=== PATIENT | female | born 1990 | race African-American/Black ===

== ENCOUNTER 2016-11-23 11:07 | Emergency (ER) | payer MEDICAID, OTHER ==
--- NOTE | 2016-11-23 11:19 | ER Document Report ---
ED Medical Screen (RME) - General Chief Complaint: Abdominal Pain Stated Complaint: ABDOMINAL PAIN Mode of Arrival: Ambulatory Information source: Patient Notes: pt presents to the ED with c/o abdominal abscess since wednesday, no fever/v/d, no hx mrsa. I have greeted and performed a rapid initial assessment of this patient. A comprehensive ED assessment and evaluation of the patient, analysis of test results and completion of the medical decision making process will be conducted by additional ED providers. TRAVEL OUTSIDE OF THE [place] IN LAST 30 DAYS: No - Related Data Allergies/Adverse Reactions: miconazole nitrate [From Monistat 3] Allergy (Verified 11/23/16 11:15) Past Medical History - Social History Chew tobacco use (# tins/day): No Frequency of alcohol use: None Drug Abuse: None Renal/ Medical History: Denies: Hx Peritoneal Dialysis - Immunizations Hx Diphtheria, Pertussis, Tetanus Vaccination: Yes Physical Exam - Vital signs Vitals: Temp Pulse Resp BP Pulse Ox 98.6 F 93 16 126/78 H 99 11/23/16 11:16 11/23/16 11:16 11/23/16 11:16 11/23/16 11:16 11/23/16 11:16 Course - Vital Signs Vital signs: Temp Pulse Resp BP Pulse Ox 98.6 F 93 16 126/78 H 99 11/23/16 11:16 11/23/16 11:16 11/23/16 11:16 11/23/16 11:16 11/23/16 11:16
--- NOTE | 2016-11-23 11:48 | ER Document Report ---
HPI - HPI Patient complains to provider of: skin pain and swelling Pain Level: 4 Context: Patient is a 25 old female presents emergency Department complaining of skin irritation on the lower part of her belly below her belly button since Wednesday. Patient states that she does notice it in hot and tender to touch since Wednesday. Denies any fever, chills. Denies any previous skin infections. Denies any history of MRSA. - REPRODUCTIVE Reproductive: DENIES: : - DERM Skin Color: Normal Past Medical History - General Information source: Patient - Social History Smoking Status: Never Smoker Chew tobacco use (# tins/day): No Frequency of alcohol use: None Drug Abuse: None Family History: Reviewed & Not Pertinent Patient has suicidal ideation: No Patient has homicidal ideation: No Renal/ Medical History: Denies: Hx Peritoneal Dialysis - Immunizations Hx Diphtheria, Pertussis, Tetanus Vaccination: Yes Vertical Provider Document - CONSTITUTIONAL Agree With Documented VS: Yes Exam Limitations: No Limitations General Appearance: WD/WN, No Apparent Distress - INFECTION CONTROL TRAVEL OUTSIDE OF THE [place] IN LAST 30 DAYS: No - RESPIRATORY Respiratory: Breath Sounds Normal, No Respiratory Distress, Chest Non-Tender. negative: Rales, Rhonchi, Wheezing O2 Sat by Pulse Oximetry: 99 - CARDIOVASCULAR Cardiovascular: Regular Rate, Regular Rhythm, No Murmur - GI/ABDOMEN Gastrointestinal: Abdomen Soft, Abdomen Non-Tender, No Organomegaly, Normal Bowel Sounds - MUSCULOSKELETAL/EXTREMETIES Musculoskeletal/Extremeties: MAEW, FROM, Non-Tender, No Edema - NEURO Level of Consciousness: Awake, Alert, Appropriate Motor/Sensory: No Motor Deficit, No Sensory Deficit - DERM Integumentary: Warm, Dry Adult Front & Back Diagram: 1 - cellulitis Notes: cellulitis 3x4cm Course - Re-evaluation Re-evalutation: 11/23/16 11:45 Patient is a 25 old female presents today with cellulitis on the abdomen. No evidence of abscess at this time, no area to drain with needle or scalpel. Will discharge patient home on by mouth antibiotics and instructions to follow- up in the emergency department in 3-4 days if site gets worse. - Vital Signs Vital signs: Temp Pulse Resp BP Pulse Ox 98.6 F 93 16 126/78 H 99 11/23/16 11:16 11/23/16 11:16 11/23/16 11:16 11/23/16 11:16 11/23/16 11:16 Discharge - Discharge Clinical Impression: Cellulitis Qualifiers: Site of cellulitis: trunk Site of cellulitis of trunk: abdominal wall Qualified Code(s): L03.311 - Cellulitis of abdominal wall Condition: Good Disposition: HOME, SELF-CARE Instructions: Acetaminophen, Use of Nxgc-Hbj-Ccunsxv Ibuprofen ([facility]) Additional Instructions: CELLULITIS: You have an infection of your skin and underlying soft tissues called cellulitis. This is due to bacteria, which can enter through any break in the skin, or even through an irritated hair follicle. Untreated, cellulitis will usually worsen. Antibiotics are required. Usually, warm packs or warm soaks, and elevation of the infected area are recommended. You should start getting better within 24 to 36 hours. Most infections respond quickly to the right medication. Follow-up care is important, however, to check for abscess (boil) formation, unsuspected foreign body, or resistant infection. If you develop fever, chills, or if the area of infection is becoming rapidly more swollen or painful, call the doctor at once. ANTIBIOTIC THERAPY: You have been given an antibiotic prescription. It's important that you take all the medication, unless instructed otherwise by your physician. Failure to complete the entire course can result in relapse of your condition. Common side effects of antibiotics include nausea, intestinal cramping, or diarrhea. Women may develop vaginal yeast infections, and babies can get yeast (thrush) in the mouth following the use of antibiotics. Contact your physician if you develop significant side effects from this medication. Allergy to this antibiotic can result in hives, wheezing, faintness, or itching. If symptoms of allergy occur, stop the medication and call the doctor. CLINDAMYCIN: You have been given a prescription for the antibiotic clindamycin. It is often prescribed for infections in the mouth, such as dental infections or abscesses, and for skin infections due to MRSA. It's important that you take all the medication, unless instructed otherwise by your physician. Failure to complete the entire course can result in relapse of your condition. Common side effects of antibiotics include nausea, intestinal cramping, or diarrhea. Women may develop vaginal yeast infections, and babies can get yeast (thrush) in the mouth following the use of antibiotics. Contact your physician if you develop significant side effects from this medication. Allergy to this antibiotic can result in hives, wheezing, faintness, or itching. If symptoms of allergy occur, stop the medication and call the doctor. FOLLOW-UP CARE: If you have been referred to a physician for follow-up care, call the physician s office for an appointment as you were instructed or within the next two days. If you experience worsening or a significant change in your symptoms, notify the physician immediately or return to the Emergency Department at any time for re-evaluation. If you're site does not show signs of healing while using the warm soaks and antibiotics please return to the emergency department Prescriptions: Clindamycin HCl 300 mg PO BID #10 capsule
[2016-11-23] MEDS ORDERED: CLINDAMYCIN HCL 150 MG CAPSULE PO ONE (11:49)
[2016-11-23 11:59] VITALS: BP 120/75
== END 2016-11-23 11:59 | disposition home or self-care (01) ==
LOC: ER 11:07
DX: L03.311 Cellulitis of abdominal wall (principal)
CPT/HCPCS: 99283

== ENCOUNTER → 2018-03-07 | Outpatient (CLI) | payer SELFPAY ==
--- NOTE | 2018-03-07 16:35 | RADIOLOGY REPORT (SQ) ---
EXAM DESCRIPTION: U/S [id number] TRNABD 1GES W/ODOP COMPLETED DATE/TIME: 03/07/2018 3:10 pm REASON FOR STUDY: ENCOUNTER FOR SUPERVISION OF OTHER NORMAL , FIRST TRIMESTER Z34.81 ENCOU NTER FOR SUPRVSN OF NORMAL , FIRST TRIM COMPARISON: None. TECHNIQUE: Transabdominal static and realtime grayscale images acquired of the pelvis. Additional se lected spectral and color Doppler images recorded. All images stored on PACs. bHCG: Not applicable. CLINICAL DATES: 10/08/2018 LIMITATIONS: None. FINDINGS: FETUS: Living intrauterine . ULTRASOUND EGA: 8 weeks 1 day ULTRASOUND UYEN: 10/16/2018 CRL: 1.69 cm FHR: 171 beats per minute. SUBCHORIONIC BLEED: No SIZE OF BLEED: Not applicable. UTERUS: No masses. No anomalies. CERVICAL LENGTH: 3.3 cm is RIGHT ADNEXA: Normal ovary with normal vascular flow. No adnexal free fluid. No adnexal masses. LEFT ADNEXA: Ovary not identified. No adnexal free fluid. No adnexal masses. FREE FLUID: None. OTHER: No other significant finding. IMPRESSION: LIVING INTRAUTERINE . EGA 8 weeks 1 day Trimester of : First - 0 to 13 weeks. TECHNICAL DOCUMENTATION: JOB ID: [id number] [employer]- All Rights Reserved rev Reading location - IP/workstation name: MICHELLE
== END ==
LOC: RAD 14:15
PROVIDERS: ATTEND Nurse Practitioner Women's Health
DX: Z34.81 Encounter for supervision of other normal pregnancy, first trimester (principal)
CPT/HCPCS: 76801

== ENCOUNTER 2018-10-20 03:10 | Inpatient (IN) | payer MEDICAID ==
[2018-10-20 03:36] LABS: APPEARANCE,URINE SLIGHTLY-CLOUDY; BILIRUBIN,URINE NEGATIVE (NEGATIVE); COLOR,URINE YELLOW; GLUCOSE, URINE NEGATIVE (NEGATIVE); KETONES,URINE NEGATIVE (NEGATIVE); LEUKOCYTE ESTERASE,URINE SMALL (NEGATIVE); NITRITE,URINE NEGATIVE (NEGATIVE); PROTEIN,URINE NEGATIVE (NEGATIVE); URINE SPECIFIC GRAVITY 1.018; UROBILINOGEN,URINE NEGATIVE mg/dL (<2.0)
[2018-10-20 03:51] LABS: URINE AMPHETAMINES SCREEN NEGATIVE; URINE BARBITURATES SCREEN NEGATIVE; URINE BENZODIAZEPINES SCREEN NEGATIVE; URINE COCAINE SCREEN NEGATIVE; URINE MARIJUANA (THC) SCREEN NEGATIVE; URINE METHADONE SCREEN NEGATIVE; URINE PHENCYCLIDINE SCREEN NEGATIVE
--- NOTE | 2018-10-20 04:23 | Non Stress Test Report ---
Non Stress Test Datetime Report Generated by CPN: 10/20/2018 04:22 DEMOGRAPHIC EGA NST: 40.4 INDICATION Indication for Study: Ordered by Provider MONITORING Monitor Explained: Monitor Explained; Test Explained; Patient Verbalized Understanding Time on Monitor: 10/20/2018 03:25 Time off Monitor: 10/20/2018 04:00 NST Duration: 35 NST INTERVENTIONS NST Interventions: None; Oxytocin Challenge Test Physician Notified NST: Dr. Dangelo BABY A: [id number] BABY A Movement : Present Contraction Frequency : 5-6 FHR Baseline : 135 Accelerations : 15X15 Decelerations : None Variability : Moderate 6-25bpm NST Review: Meets Criteria for Reactive NST NST Review and Verified By : SVance,RNC NST Results: Reactive NST REPORT Report Trigger: Send Report
[2018-10-20] MEDS ORDERED: MISOPROSTOL 0.2 MG TABLET ONE (05:17)
[2018-10-20] MEDS ORDERED: OXYTOCIN/NORMAL SALINE 20 UNIT/1,000 ML RTUINJ ONE (05:17)
[2018-10-20] MEDS ORDERED: LIDOCAINE 1% INJ-PF (10 MG/ML) 30 ML SDV ONE (05:17)
[2018-10-20] MEDS ORDERED: PENICILLIN G-K 5 MILLION UNIT VIAL ONE ×2 (05:18→08:23)
[2018-10-20] MEDS ORDERED: RINGERS SOLUTION,LACTATED 300 ML IV ONE (05:47)
[2018-10-20] MEDS ORDERED: RINGERS SOLUTION,LACTATED 1,000 ML IV PRN (05:47)
[2018-10-20] MEDS ORDERED: OXYTOCIN/NORMAL SALINE 20 UNIT/1,000 ML RTUINJ IV PRN ×2 (05:47→09:35)
[2018-10-20 06:26] LABS: ABSOLUTE EOSINOPHILS # (AUTO) 0.1 10^3/uL (0.0-0.6); ABSOLUTE LYMPHOCYTES (AUTO) 1.3 10^3/uL (0.5-4.7); ABSOLUTE MONOCYTES (AUTO) 0.5 10^3/uL (0.1-1.4); ABSOLUTE NEUT (AUTO) 5.8 10^3/uL (1.7-8.2); BASOPHILS % (AUTO) 0.5 % (0-2); EOSINOPHILS % (AUTO) 0.8 % (0-6); HEMATOCRIT 34.8 % (36.0-47.0); HEMOGLOBIN 11.3 g/dL (12.0-15.5); LYMPHOCYTES % (AUTO) 16.5 % (13-45); MEAN CORPUSCULAR HEMOGLOBIN 21.6 pg (27.0-33.4); MEAN CORPUSCULAR HGB CONC 32.4 g/dL (32.0-36.0); MEAN CORPUSCULAR VOLUME 67 fl (80-97); MONOCYTES % (AUTO) 6.2 % (3-13); PLATELET COUNT 171 10^3/uL (150-450); RED BLOOD COUNT 5.22 10^6/uL (3.72-5.28); RED CELL DISTRIBUTION WIDTH 16.9 % (11.5-14.0); TOTAL CELLS COUNTED % (AUTO) 100 %; WHITE BLOOD COUNT 7.7 10^3/uL (4.0-10.5)
--- NOTE | 2018-10-20 06:28 | Admission Physical ---
Datetime Report Generated by CPN: 10/20/2018 06:27 CURRENT ADMISSION Chief Complaint: Uterine Contractions Indication for Induction: Not Applicable Admit Impression : Term, Intrauterine ; Active Labor Admit Plan: Admit to Unit; Initiate Labor Protocol ALLERGIES Medication Allergies: No Medication Allergies: No Known Allergies (10/20/2018) Latex: No Latex Allergies OBSTETRICAL HISTORY EDC: 10/16/2018 00:00 : 4 Para: 3 Term: 3 : 0 SAB: 0 IAB: 0 Ectopic: 0 Livin Cesareans: 0 VBACs: 0 Multiple Births: 0 Gestational Diabetes: No Rh Sensitization: No Incompetent Cervix: No REBECCA: No Infertility: No ART Treatment: No Uterine Anomaly: No IUGR: No Hx Previous C/S: No Macrosomia: No Hx Loss/Stillborn: No PIH: No Hx : No Placenta Previa/Abruption: No Depression/PP Depression: No PTL/PROM: No Post Hemorrhage: No Current Procedures: Ultrasound Obstetrical History Comments: G1 @ 41wks 2010 6lb 12 oz male G2 @ 38.4wks 2012 7lb 9 oz female G3 @ 38wks 2013 6lb 9 oz male G4 current SEE RECORDS Alcohol: No Marijuana : No Cocaine: No Other Illicit Drugs: No Cigarettes: Never Smoker. [id number] MEDICAL HISTORY Diabetes: No Blood Transfusion: No Pulmonary Disease (Asthma, TB): No Breast Disease: No Hypertension: No Convolute Tube Winder Surgery: No Heart Disease: No Hosp/Surgery: No Autoimmune Disorder: No Anesthetic Complications: No Kidney Disease: Yes Abnormal Pap Smear: Yes Neuro/Epilepsy: No Psychiatric Disorders: No Other Medical Diseases: No Hepatitis/Liver Disease: No Significant Family History: No Varicosities/Phlebitis: No Trauma/Violence : No Thyroid Dysfunction: No Medical History Comments: abnormal pap - HGSIL, LEEP, sickle-cell trait INFECTIOUS HISTORY Gonorrhea: No Genital Herpes: No Chlamydia: No Tuberculosis: No Syphilis: No Hepatitis: No HIV/AIDS Exposure: No Rash or Viral Illness: No HPV: No Infectious History Comments: trichomonas 2011 PHYSICAL EXAM General: Normal HEENT: Normal Neurologic: Normal Thyroid: Normal Heart: Normal Lungs: Normal Breast: Deferred Back: Normal Abdomen: Normal Genitourinary Exam: Normal Extremities: Normal DTRs: Normal Pelvic Type: Adequate Vital Signs: Reviewed VAGINAL EXAM Dilatation: 6 Effacement: 70 Station: -2 MEMBRANES Pooling: Negative Membranes: Intact FETUS A EGA: 40.4 Monitoring: External US FHR- Baseline: 120 Variability: Moderate 6-25bpm Decelerations: None FHR Category: Category I Presentation: Vertex Admit Comment: EFW 7-8lbs PLANS FOR LABOR AND DELIVERY Labor and Delivery: None Pain Management: Natural Feeding Preference: Both Benefit of Breast Feed Discussed: Yes Circumcision: Yes INFORMED CONSENT Signature: with User ID: [email or web address]
[2018-10-20] MEDS ORDERED: ACETAMINOPHEN WITH CODEINE #3 TABLET PO PRN ×2 (09:35)
[2018-10-20] MEDS ORDERED: MISOPROSTOL 0.2 MG TABLET PR PRN (09:35)
[2018-10-20] MEDS ORDERED: BENZOCAINE/MENTHOL AEROSOL SPRAY 56 ML TOP PRN (09:35)
[2018-10-20] MEDS ORDERED: PSEUDOEPHEDRINE HCL 30 MG TABLET PO PRN (09:35)
[2018-10-20] MEDS ORDERED: GLYCERIN/WITCH HAZEL LEAF 1 EACH MED..PAD TP PRN (09:35)
[2018-10-20] MEDS ORDERED: MEASLES,MUMPS&RUBELLA VACC/PF 0.5 ML VIAL SUBCUT PRN (09:35)
[2018-10-20] MEDS ORDERED: MAGNESIUM HYDROXIDE SUSP 30 ML UDCUP PO PRN (09:35)
[2018-10-20] MEDS ORDERED: DIBUCAINE 1% OINTMENT 28 GM TP PRN (09:35)
[2018-10-20] MEDS ORDERED: PROMETHAZINE HCL INJ 25 MG/1 ML VIAL IV PRN (09:35)
[2018-10-20] MEDS ORDERED: PROMETHAZINE HCL 25 MG TABLET PO PRN (09:35)
[2018-10-20] MEDS ORDERED: DIPHENHYDRAMINE HCL 25 MG CAPSULE PO PRN (09:35)
[2018-10-20] MEDS ORDERED: NA PHOS,M-B/NA PHOS,DI-BA (ADULT) 133 ML ENEMA PR PRN (09:35)
[2018-10-20] MEDS ORDERED: ACETAMINOPHEN 650 MG SUPP.RECT PR PRN (09:35)
[2018-10-20] MEDS ORDERED: DIPH/PERTUSS(ACELL)/TETANUS VAC/PF 0.5 ML SYR (>=10YO) IM PRN (09:35)
[2018-10-20] MEDS ORDERED: PROMETHAZINE HCL 25 MG SUPP.RECT PR PRN (09:35)
[2018-10-20] MEDS ORDERED: IBUPROFEN 800 MG TABLET ONE (10:48)
--- NOTE | 2018-10-20 10:59 | Warning Signs in Babies ---
VOD Warning Signs Datetime Report Generated by [facility]: 10/20/2018 10:58 VOD#608 -Warning Signs in Babies: Needs to be viewed. (10/20/2018 03:09:JANUSZ Zavala)
--- NOTE | 2018-10-20 11:01 | Delivery Summary ---
Del Sum A-C Datetime Report Generated by CPN: 10/20/2018 11:00 DELIVERY PERSONNEL DELIVERY PERSONNEL: [id number] Delivery Doctor:: Bertin Art MD Nurse Electrical Experimental Mechanic Certified:: Mary Amaya CNM Labor and Delivery Nurse:: Cora Weathers RNwatch band assembler Nurse:: JANUSZ Zavala Nursery Nurse:: Charity Ventura RN Student Observers:: Daily PAULINO- Nurse resident MATERNAL INFORMATION Delivery Anesthesia: Local Medications After Delivery: Pitocin Bolus-Please Comment; Cytotec 600mcg Per Rectum/Vagina Meds After Delivery Comment: Pitocin 20 units in 1000ml nss open for bolus Maternal Complications: None Provider Comments: Pt pusing, decelerations, Dr. Art notified, failed vac due to large amount of hair, by Dr. Art, placed on mothers abdomen, cord clamped and cut after 3 minutes by FOB, spont delivery of grossed normal intact placenta, 3 VC, uterine atony resolved with massage, Pitocin and Cytotec 600mcg 2nd degreee lac repaired with 2-0 chromic, without difficulty, vaginal sweep negative for sponges, cervix intact, rectum patent. Baby and mom remain in recovery in stable condition (Annotations: Data stored by CPN on behalf of user) LABOR SUMMARY EDC: 10/16/2018 00:00 No. Babies in Womb: 1 Attempted: No Labor Anesthesia: None LABOR INFORMATION Reason for Induction: Not Applicable Onset of Labor: 10/20/2018 02:30 Complete Dilatation: 10/20/2018 08:29 Oxytocin: N/A Group B Beta Strep: positive Antibiotics # of Doses: 2 Antibiotics Time of Last Dose: 832 Name of Antibiotic Given: Penicillin Steroids Given: None Reason Steroids Not Administered: Not Applicable MEMBRANES Membranes Rupture Method: Artificial Rupture of Membranes: 10/20/2018 08:27 Length of Rupture (hr): 0.65 Amniotic Fluid Color: Clear Amniotic Fluid Amount: Moderate Amniotic Fluid Odor: Normal STAGES OF LABOR Stage 1 hr: 5 Stage 1 min: 59 Stage 2 hr: 0 Stage 2 min: 37 Stage 3 hr: 0 Stage 3 min: 4 Total Time in Labor hr: 6 Total Time in Labor min: 40 VAGINAL DELIVERY Episiotomy: None Laceration #1: Perineal Laceration Extension #1: N/A Laceration Repair: Yes Laceration Repair Note: 2-0 chromic, 2nd degree ML lac, using 10cc 2% Xylocaine Sponge Count Correct: N/A Sharps Count Correct: N/A CSECTION DELIVERY Primary Indication: N/A Secondary Indication: N/A CSection Incidence: N/A Labor: N/A Elective: N/A CSection Incision: N/A BABY A INFORMATION Infant Delivery Date/Time: 10/20/2018 09:06 Method of Delivery: Vaginal Born in Route : No : N/A Forceps: N/A Vacuum Extraction: Failed Shoulder Dystocia : Yes PRESENTATION/POSITION BABY A Presentation: Cephalic Cephalic Presentation: Vertex Vertex Position: Left Occipital Anterior Breech Presentation: N/A PLACENTA INFORMATION BABY A Placenta Delivery Time : 10/20/2018 09:10 Placenta Method of Delivery: Spontaneous Placenta Status: Delivered SCORES BABY A Heart Rate 1 min: >100 bpm Resp Effort 1 min: Good Cry Reflex Irritability 1 min: Cough or Sneeze or Pulls Away Muscle Tone 1 min: Active Motion Color 1 min: Blue/Pale SCORE 1 MIN: 8 Heart Rate 5 min: >100 bpm Resp Effort 5 min: Good Cry Reflex Irritability 5 min: Cough or Sneeze or Pulls Away Muscle Tone 5 min: Active Motion Color 5 min: Body Wilcox, Extremities Blue SCORE 5 MIN: 9 INFORMATION BABY A Gestational Age at Delivery: 40.4 Gestational Status: Full Term- 39- 40.6 Weeks Infant Outcome : Liveborn Condition : Stable Sex: Male IDENTIFICATION BABY A Infant Verification Date/Time: 10/20/2018 09:35 ID Band Number: [id number] Mother's Name Verified: Yes Infant RN Verifying : J, RN and R.Michael, RN WEIGHT/LENGTH BABY A Infant Birthweight (gm): 3760 Weight (lb): 8 Infant Weight (oz): 5 Infant Length (in): 20.50 Infant Length (cm): 52.07 CORD INFORMATION BABY A No. Cord Vessels: 3 Nuchal Cord : N/A Cord Blood Taken: Yes-For Eval (Mom's Blood Type - or O+) Infant Suction: None ASSESSMENT BABY A Complications: Multiple Variable Decels Physical Findings at Delivery: Within Normal Limits Infant Respirations: Appears Normal Skin to Skin: Yes Skin to Skin Time (min): 45 Supervisor [employer]/ALS Called : No Care By: Isidro Ventura RN Transferred To: Remains with Mother BABY B INFORMATION : N/A
[2018-10-20] MEDS: FERROUS SULFATE 325 MG TABLET PO SCH ×2 (11:44→19:37)
[2018-10-20] MEDS: DOCUSATE SODIUM 100 MG CAPSULE PO SCH ×2 (11:44→19:37)
[2018-10-20] MEDS: SENNOSIDES/DOCUSATE 8.6-50 MG 1 EACH TABLET PO SCH (11:44)
[2018-10-20] MEDS: PRENATAL VITAMIN W DHA CAPSULE PO SCH (11:44)
[2018-10-20] MEDS: FAMOTIDINE 20 MG TABLET PO SCH ×2 (11:44→21:30)
[2018-10-20] MEDS: IBUPROFEN 800 MG TABLET PO SCH ×2 (15:26→21:30)
[2018-10-21] MEDS: IBUPROFEN 800 MG TABLET PO SCH ×3 (06:28→21:23)
[2018-10-21 07:38] LABS: HEMATOCRIT 29.5 % (36.0-47.0); HEMOGLOBIN 9.5 g/dL (12.0-15.5); MEAN CORPUSCULAR HEMOGLOBIN 21.9 pg (27.0-33.4); MEAN CORPUSCULAR HGB CONC 32.3 g/dL (32.0-36.0); MEAN CORPUSCULAR VOLUME 68 fl (80-97); PLATELET COUNT 160 10^3/uL (150-450); RED BLOOD COUNT 4.35 10^6/uL (3.72-5.28); WHITE BLOOD COUNT 9.2 10^3/uL (4.0-10.5)
[2018-10-21] MEDS: SENNOSIDES/DOCUSATE 8.6-50 MG 1 EACH TABLET PO SCH (10:22)
[2018-10-21] MEDS: FAMOTIDINE 20 MG TABLET PO SCH ×2 (10:22→21:23)
[2018-10-21] MEDS: PRENATAL VITAMIN W DHA CAPSULE PO SCH (10:22)
[2018-10-21] MEDS: FERROUS SULFATE 325 MG TABLET PO SCH ×2 (10:22→18:06)
[2018-10-21] MEDS: DOCUSATE SODIUM 100 MG CAPSULE PO SCH ×2 (10:23→18:06)
--- NOTE | 2018-10-21 11:40 | PDOC PROGRESS REPORT ---
Subjective-OB Progress Note for:: 10/21/18 Subjective: Feeling SOB and chest pain when up walking. She feels it is secondary to pushing as she describes a pulling pain since delivery. Physical Exam (OB) Vital Signs: Temp Pulse Resp BP Pulse Ox 97.7 F 95 18 119/64 99 10/21/18 08:12 10/21/18 08:12 10/21/18 08:12 10/21/18 08:12 10/21/18 08:12 Intake & Output 10/20/18 10/21/18 10/22/18 06:59 06:59 06:59 Weight 83.7 kg - Lochia Lochia Amount: Scant < 10 ml Lochia Color: Rubra/Red - Abdomen Description: Tender, Soft Hernia Present: No Bowel Sounds: Normoactive Flatus Presence: Present Stool: No Fundal Description: Firm, Midline Fundal Height: u/u - u/2 Objective-Diagnostic Laboratory: 10/21/18 07:10 10/21/18 07:10 WBC 9.2 RBC 4.35 Hgb 9.5 L Hct 29.5 L MCV 68 L MCH 21.9 L MCHC 32.3 RDW 17.0 H Plt Count 160
--- NOTE | 2018-10-21 13:58 | EKG REPORT ---
SEVERITY:- NORMAL ECG - SINUS RHYTHM : Confirmed by: Colton Laboy 21-Oct-2018 13:57:22
[2018-10-22] MEDS: IBUPROFEN 800 MG TABLET PO SCH (05:25)
[2018-10-22] MEDS: FERROUS SULFATE 325 MG TABLET PO SCH (10:27)
[2018-10-22] MEDS: DOCUSATE SODIUM 100 MG CAPSULE PO SCH (10:27)
[2018-10-22] MEDS: FAMOTIDINE 20 MG TABLET PO SCH (10:27)
[2018-10-22] MEDS: PRENATAL VITAMIN W DHA CAPSULE PO SCH (10:27)
[2018-10-22] MEDS: SENNOSIDES/DOCUSATE 8.6-50 MG 1 EACH TABLET PO SCH (10:27)
--- NOTE | 2018-10-22 10:58 | PDOC PROGRESS REPORT ---
Subjective-OB Progress Note for:: 10/22/18 Subjective: Ready for discharge. Physical Exam (OB) Vital Signs: Temp Pulse Resp BP Pulse Ox 97.7 F 90 18 122/75 99 10/22/18 08:27 10/22/18 08:27 10/22/18 08:27 10/22/18 08:27 10/22/18 08:27 - Lochia Lochia Amount: Scant < 10 ml Lochia Color: Rubra/Red - Abdomen Description: Tender, Soft Hernia Present: No Bowel Sounds: Normoactive Flatus Presence: Present Stool: No Fundal Description: Firm, Midline Fundal Height: u/u - u/2 Objective-Diagnostic Laboratory: 10/21/18 07:10
--- NOTE | 2018-10-22 11:04 | PDOC DISCHARGE SUMMARY ---
Final Diagnosis Discharge Date: 10/22/18 - Final Diagnosis (1) Failed vacuum extraction, delivered, current hospitalization Is this a current diagnosis for this admission?: Yes (2) GBS (group B Streptococcus carrier), +RV culture, currently Is this a current diagnosis for this admission?: Yes (3) Vaginal laceration Is this a current diagnosis for this admission?: Yes (4) Normal vaginal delivery Is this a current diagnosis for this admission?: Yes Discharge Data - Discharge Medication Prescriptions: Docusate Sodium [Colace 100 mg Capsule] 100 mg PO BID #30 capsule Ferrous Sulfate [Feosol 325 mg Tablet] 325 mg PO BID #60 tablet Home Medications: Pnv 21/Iron Ps,Heme Ppep/Folic [Hemenatal Ob Tablet] 1 each PO DAILY 06/07/12 Docusate Sodium [Colace 100 mg Capsule] 100 mg PO BID #30 capsule 10/22/18 Ferrous Sulfate [Feosol 325 mg Tablet] 325 mg PO BID #60 tablet 10/22/18 Gestational Age: 40.4 wks Reason(s) for Admission: Onset of Labor Procedures: Ultrasound Intrapartum Procedure(s): Spontaneous Vaginal Delivery Complication(s): Laceration-Perineal Laceration-Degree: 2nd - Data Baby 1 Male at 1 minute: 8 at 5 minutes: 9 Weight: 3.77 kg Home with Mother: Yes Complications: No - Diagnosis Test Laboratory: Temp Pulse Resp BP Pulse Ox 97.7 F 90 18 122/75 99 10/22/18 08:27 10/22/18 08:27 10/22/18 08:27 10/22/18 08:27 10/22/18 08:27 10/20/18 10/20/18 10/21/18 03:14 06:13 07:10 RBC 5.22 4.35 Hgb 11.3 L 9.5 L Hct 34.8 L 29.5 L Urine Opiates Screen NEGATIVE - Discharge information/Instructions Discharge Activity: Activity As Tolerated, Balance Activity w/Rest, Pelvic Rest, Slowly Increase Activity, No tub bath Discharge Diet: Regular Disposition: HOME, SELF-CARE Follow up with: [facility] in: 4, Weeks
[2018-10-22 12:51] VITALS: BP 124/78
== END 2018-10-22 14:20 | disposition home or self-care (01) | DRG 807 ==
LOC: LC 03:10 → LR 05:21 → 2S 11:23
PROVIDERS: ADMIT Obstetrics & Gynecology; ATTEND Obstetrics & Gynecology Gynecology
PROC: 10E0XZZ Delivery of Products of Conception, External Approach (ICD-10-PCS; principal; 2018-10-20)
PROC: 0KQM0ZZ Repair Perineum Muscle, Open Approach (ICD-10-PCS; 2018-10-20)
PROC: 4A1HXCZ Monitoring of Products of Conception, Cardiac Rate, External Approach (ICD-10-PCS; 2018-10-20)
DX: O76 Abnormality in fetal heart rate and rhythm complicating labor and delivery (principal); Z37.0 Single live birth; O99.824 Streptococcus B carrier state complicating childbirth; O62.2 Other uterine inertia; O70.1 Second degree perineal laceration during delivery; Z3A.40 40 weeks gestation of pregnancy
CPT/HCPCS: 36415; 80307; 81005; 84112; 85025; 85027; 86592; 86850; 86900; 86901; 93005; 93010; 94760; J2540; J2590; J3490

== ENCOUNTER 2018-11-01 09:49 | Emergency (ER) | payer MEDICAID ==
[2018-11-01] MEDS ORDERED: KETOROLAC TROMETHAMINE 60 MG/2 ML SDV IM ONE ×2 (10:35→18:57)
--- NOTE | 2018-11-01 10:38 | ER Document Report ---
ED Medical Screen (RME) - General Chief Complaint: Nausea Stated Complaint: BACK PAIN/VOMITING Time Seen by Provider: 11/01/18 10:24 Primary Care Provider: DENIZ LOPEZ MD [Primary Care Provider] - Follow up as needed Mode of Arrival: Ambulatory Information source: Patient Notes: 19-year-old female presents with complaint of right low back pain, nausea, vomiting. Patient delivered 12 days prior to arrival. I have greeted and performed a rapid initial assessment of this patient. A comprehensive ED assessment and evaluation of the patient, analysis of test results and completion of medical decision making process we will be contacted by additional ED providers. PHYSICAL EXAMINATION: Vital signs reviewed GENERAL: Well-appearing, well-nourished and in no acute distress. LUNGS: No respiratory distress NEUROLOGICAL: Normal speech, normal gait. PSYCH: Normal mood, normal affect. SKIN: Warm, Dry, normal turgor, no rashes or lesions noted. TRAVEL OUTSIDE OF THE [place] IN LAST 30 DAYS: No - HPI Onset: Last week Onset/Duration: Gradual Quality of pain: Throbbing Severity: Moderate Associated Symptoms: Body/muscle aches, Nausea Exacerbated by: Movement, Walking Relieved by: Denies Similar symptoms previously: No Recently seen / treated by doctor: Yes - Related Data Smoking: Non-smoker Frequency of alcohol use: None Drug Abuse: None Allergies/Adverse Reactions: No Known Allergies Allergy (Unverified 10/20/18 03:16) Past Medical History - Social History Chew tobacco use (# tins/day): No Frequency of alcohol use: None Drug Abuse: None Renal/ Medical History: Denies: Hx Peritoneal Dialysis - Immunizations Hx Diphtheria, Pertussis, Tetanus Vaccination: Yes Physical Exam - Vital signs Vitals: Temp Pulse Resp BP Pulse Ox 99.5 F 108 H 18 124/80 100 11/01/18 10:08 11/01/18 10:08 11/01/18 10:08 11/01/18 10:08 11/01/18 10:08 Course - Vital Signs Vital signs: Temp Pulse Resp BP Pulse Ox 99.5 F 108 H 18 124/80 100 11/01/18 10:08 11/01/18 10:08 11/01/18 10:08 11/01/18 10:08 11/01/18 10:08 Doctor's Discharge - Discharge Referrals: DENIZ LOPEZ MD [Primary Care Provider] - Follow up as needed
--- NOTE | 2018-11-01 15:22 | ER Document Report ---
ED General - General Chief Complaint: Nausea Stated Complaint: BACK PAIN/VOMITING Time Seen by Provider: 11/01/18 10:24 Primary Care Provider: DENIZ LOPEZ MD [Primary Care Provider] - Follow up as needed Mode of Arrival: Ambulatory Notes: 27-year-old female presents with complaint of right low back pain, nausea, vomiting. She states that when she stood up last night she was unable to bear weight on it and had a lightening sharp pain that felt like electricity running down her right leg. She also says that she got dizzy after getting up. She states that she thinks she has iron deficiency anemia and her blood work yesterday showed that she had a hemoglobin of around 8. She says this is fairly normal for her. She denies fever, chills, shortness of breath, chest pain, urinary symptoms. Patient delivered 12 days prior to arrival via vaginal .. TRAVEL OUTSIDE OF THE [place] IN LAST 30 DAYS: No - Related Data Allergies/Adverse Reactions: No Known Allergies Allergy (Unverified 10/20/18 03:16) Past Medical History - General Information source: Patient - Social History Smoking Status: Never Smoker Chew tobacco use (# tins/day): No Frequency of alcohol use: None Drug Abuse: None Family History: Reviewed & Not Pertinent Patient has suicidal ideation: No Patient has homicidal ideation: No Renal/ Medical History: Denies: Hx Peritoneal Dialysis - Immunizations Hx Diphtheria, Pertussis, Tetanus Vaccination: Yes Review of Systems - Review of Systems Constitutional: See HPI EENT: No symptoms reported Cardiovascular: See HPI Respiratory: See HPI Gastrointestinal: See HPI Genitourinary: See HPI Female Genitourinary: No symptoms reported Musculoskeletal: No symptoms reported Skin: No symptoms reported Hematologic/Lymphatic: No symptoms reported Neurological/Psychological: See HPI Physical Exam - Vital signs Vitals: Temp Pulse Resp BP Pulse Ox 99.5 F 108 H 18 124/80 100 11/01/18 10:08 11/01/18 10:08 11/01/18 10:08 11/01/18 10:08 11/01/18 10:08 Interpretation: Normal - Notes Notes: PHYSICAL EXAMINATION: Reviewed vital signs and charting by RN GENERAL: Alert, interacts well. No acute distress. HEAD: Normocephalic, atraumatic. EYES: Pupils equal, round. Extraocular movements intact. ENT: Oral mucosa moist NECK: Full range of motion. Trachea midline. LUNGS: Clear to auscultation bilaterally, no wheezes, rales, or rhonchi. No respiratory distress. HEART: Regular rate and rhythm. No murmur ABDOMEN: soft, tender to palpation right lower quadrant. Non-distended. Bowel sounds present in all 4 quadrants. no McBurney's point tenderness, no Mendez sign. EXTREMITIES: Moves all 4 extremities spontaneously. No edema, No cyanosis. BACK: no cervical, thoracic, lumbar midline tenderness. No saddle anesthesia, normal distal neurovascular exam. Tenderness to palpation right paraspinal at level of L1 along through the SI joint. Was not able to reproduce radiating radicular pain. NEUROLOGICAL: Alert and oriented x3. Normal speech. 5 out of 5 strength both distally and proximally bilateral lower extremities. Sensation grossly intact in the bilateral lower extremities. Patient is able to ambulate with mild difficulty. PSYCH: Normal affect, normal mood. SKIN: Warm, dry, normal turgor. No rashes or lesions noted. Course - Re-evaluation Re-evalutation: 11/01/18 18:40 Overall well-appearing 19-year-old female with acute right paraspinal lumbar pain with radiculopathy down her right leg through the SI joint. She is having right lower quadrant abdominal pain associated with it, worse when she takes a deep breath. Patient is 12 days . Patient had a difficult labor. Because of the mixed picture and discussions with Dr. Lowery low threshold and we obtained a CT abdomen/pelvis with IV contrast to ensure that there was no free fluid or any concerning pathology considering her recent history. Most likely, her pain is musculoskeletal but at this point it is unclear. CT was completed and awaiting radiologist read. 11/02/18 07:20 CT abdomen/pelvis only remarkable for in umbilical hernia with no incarcerated b owel. No free fluid. At this time patient's symptoms are most likely related to a difficult labor and lower back pain. The picture is much clear now. I instructed patient that she has no concerning emergency symptoms or pathology at this time. Patient did endorse relief from her initial Toradol injection. There has been enough time elapsed and patient received a second Toradol shot and will be sent home with instructions. Conservative measures in place. Patient is breast-feeding we will not give her any types of antispasmodics or benzodiazepines for muscle spasms. Patient is safe and stable discharge home. - Vital Signs Vital signs: Temp Pulse Resp BP Pulse Ox 100.0 F 105 H 16 115/75 100 11/01/18 17:50 11/01/18 17:50 11/01/18 17:50 11/01/18 17:50 11/01/18 17:50 - Laboratory Result Diagrams: 11/01/18 16:35 11/01/18 16:35 Laboratory results interpreted by me: 11/01/18 11/01/18 11/01/18 16:35 16:35 17:00 Hgb 10.7 L Hct 33.3 L MCV 68 L MCH 21.8 L RDW 17.0 H Seg Neutrophils % 81.3 H Glucose 112 H Urine Protein 100 H Urine Glucose (UA) 50 H Urine Blood SMALL H Urine Nitrite POSITIVE H Ur Leukocyte Esterase LARGE H Urine Ascorbic Acid 20 H Discharge - Discharge Clinical Impression: Lower back pain Qualifiers: Chronicity: acute Back pain laterality: right Sciatica presence: with sciatica Sciatica laterality: sciatica of right side Qualified Code(s): M54.41 - Lumbago with sciatica, right side Condition: Good Disposition: HOME, SELF-CARE Additional Instructions: You have been seen in the Emergency Department (ED) today for back pain. Your workup and exam have not shown any acute abnormalities and you are likely suffering from muscle strain or possible problems with your discs, but there is no treatment that will fix your symptoms at this time. Please take ibuprofen 600 mg every 6 hours with food or milk, you should start feeling the effects and 24 hours. You should also purchase a local lidocaine cream such as "aspercreme with lidocaine" and use per bottle instructions to the affected area. Apply heat to the area as often as you are able. Continue to keep active and avoid prolo nged periods of bed rest. Please follow up with your doctor as soon as possible regarding today's ED visit and your back pain. Return to the ED for worsening back pain, fever, weakness or numbness of either leg, or if you develop either (1) an inability to urinate or have bowel movements, or (2) loss of your ability to control your bathroom functions (if you start having "accidents"), or if you develop other new symptoms that concern you.concern you. Referrals: DENIZ LOPEZ MD [Primary Care Provider] - Follow up as needed
[2018-11-01] MEDS ORDERED: ACETAMINOPHEN 325 MG TABLET PO ONE (16:15)
[2018-11-01 16:57] LABS: ABSOLUTE EOSINOPHILS # (AUTO) 0.1 10^3/uL (0.0-0.6); ABSOLUTE LYMPHOCYTES (AUTO) 1.3 10^3/uL (0.5-4.7); ABSOLUTE MONOCYTES (AUTO) 0.4 10^3/uL (0.1-1.4); ABSOLUTE NEUT (AUTO) 8.1 10^3/uL (1.7-8.2); BASOPHILS % (AUTO) 0.2 % (0-2); EOSINOPHILS % (AUTO) 0.6 % (0-6); HEMATOCRIT 33.3 % (36.0-47.0); HEMOGLOBIN 10.7 g/dL (12.0-15.5); LYMPHOCYTES % (AUTO) 13.4 % (13-45); MEAN CORPUSCULAR HEMOGLOBIN 21.8 pg (27.0-33.4); MEAN CORPUSCULAR VOLUME 68 fl (80-97); MONOCYTES % (AUTO) 4.5 % (3-13); PLATELET COUNT 277 10^3/uL (150-450); RED BLOOD COUNT 4.91 10^6/uL (3.72-5.28); SEGMENTED NEUTROPHILS % (AUTO) 81.3 % (42-78); TOTAL CELLS COUNTED % (AUTO) 100 %; WHITE BLOOD COUNT 9.9 10^3/uL (4.0-10.5)
[2018-11-01 17:25] LABS: APPEARANCE,URINE TURBID; BILIRUBIN,URINE NEGATIVE (NEGATIVE); COLOR,URINE AMBER; GLUCOSE, URINE 50 mg/dL (NEGATIVE); KETONES,URINE NEGATIVE (NEGATIVE); LEUKOCYTE ESTERASE,URINE LARGE (NEGATIVE); NITRITE,URINE POSITIVE (NEGATIVE); PROTEIN,URINE 100 mg/dL (NEGATIVE); URINE SPECIFIC GRAVITY 1.018; UROBILINOGEN,URINE NEGATIVE mg/dL (<2.0)
[2018-11-01 17:28] LABS: ALANINE AMINOTRANSFERASE 27 U/L (9-52); ALBUMIN 3.6 g/dL (3.5-5.0); ALKALINE PHOSPHATASE 104 U/L (38-126); ANION GAP 10 (5-19); ASPARTATE AMINO TRANSFERASE 20 U/L (14-36); BILIRUBIN,DIRECT 0.2 mg/dL (0.0-0.4); BILIRUBIN,TOTAL 0.5 mg/dL (0.2-1.3); BLOOD UREA NITROGEN 12 mg/dL (7-20); CALCIUM 8.8 mg/dL (8.4-10.2); CARBON DIOXIDE 29 mmol/L (22-30); CHLORIDE 101 mmol/L (98-107); GLUCOSE 112 mg/dL (75-110); SODIUM 140.2 mmol/L (137-145); TOTAL PROTEIN 6.7 g/dL (6.3-8.2)
[2018-11-01 17:56] VITALS: BP 115/75
--- NOTE | 2018-11-01 18:48 | RADIOLOGY REPORT (SQ) ---
EXAM DESCRIPTION: CT ABD/PELVIS WITH IV ONLY COMPLETED DATE/TIME: 11/01/2018 6:34 pm REASON FOR STUDY: fall, rib fx, RUQ and side pain COMPARISON: None. TECHNIQUE: CT scan of the abdomen and pelvis performed using helical scanning technique with dynamic intravenous contrast injection. No oral contrast. Images reviewed with lung, soft tissue, and bone windows. Reconstructed coronal and sagittal MPR images reviewed. Delayed images for evaluation of the urinary system also acquired. All images stored on PACS. All CT scanners at this facility use dose modulation, iterative reconstruction, and/or weight based d osing when appropriate to reduce radiation dose to as low as reasonably achievable (ALARA). [facility]: Dose Right [facility]: CareDose [facility]: Dose Right [facility]: Teradose 4D [facility]: Ultriva CONTRAST TYPE AND DOSE: contrast/concentration: Isovue 350.00 mg/ml; Total Contrast Delivered: 91.0 ml; Total Saline Delivered: 70.0 ml RENAL FUNCTION: BUN 12 creatinine 1.01 RADIATION DOSE: CT Rad equipment meets quality standard of care and radiation dose reduction techniq ues were employed. CTDIvol: 11.2 - 15.5 mGy. DLP: 1347 mGy-cm.. LIMITATIONS: Relative paucity of intra-abdominal fat. FINDINGS: LOWER CHEST: No significant findings. No nodules or infiltrates. LIVER: Normal size. No masses. No dilated ducts. SPLEEN: Normal size. No focal lesions. PANCREAS: No masses. No significant calcifications. No adjacent inflammation or peripancreatic fluid collections. Pancreatic duct not dilated. GALLBLADDER: No identified stones by CT criteria. No inflammatory changes to suggest cholecystitis. ADRENAL GLANDS: No significant masses or asymmetry. RIGHT KIDNEY AND URETER: No solid masses. No significant calcifications. No hydronephrosis or hyd roureter. LEFT KIDNEY AND URETER: No solid masses. No significant calcifications. No hydronephrosis or hydr oureter. AORTA AND VESSELS: No aneurysm. No dissection. Renal arteries, SMA, celiac without stenosis. RETROPERITONEUM: No retroperitoneal adenopathy, hemorrhage or masses. BOWEL AND PERITONEAL CAVITY: No masses or inflammatory changes. No free fluid or peritoneal masses. APPENDIX: Not identified. PELVIS: Urinary bladder is normal. The uterus appears to be recently . ABDOMINAL WALL: There is a wide umbilical hernia containing unobstructed bowel. BONES: No significant or acute findings. OTHER: No other significant finding. IMPRESSION: Wide umbilical hernia containing unobstructed bowel. Prominent uterus appears to be rec ently . There are no specific right lower quadrant findings to explain the patient's pain. The appendix is not identified but no definite pericecal inflammatory changes are seen. TECHNICAL DOCUMENTATION: JOB ID: [id number] Quality ID # [id number]: Final reports with documentation of one or more dose reduction techniques (e.g., Au tomated exposure control, adjustment of the mA and/or kV according to patient size, use of iterative reconstruction technique) 2010 [email or web address]- All Rights Reserved Reading location - IP/workstation name: [email or web address]
[2018-11-01] MEDS ORDERED: LIDOCAINE 5% (700 MG) TRANSDERMAL ADH..PATCH TP ONE (18:57)
== END 2018-11-01 19:23 | disposition home or self-care (01) ==
LOC: ER 09:49
DX: R11.2 Nausea with vomiting, unspecified (principal); M54.41 Lumbago with sciatica, right side
CPT/HCPCS: 99284; 96372; 36415; 85025; 80053; 81001; 74177; J3490 ×2; J1885